=== PATIENT | female | born 1975 | race Two or more races ===

== ENCOUNTER 2021-03-20 09:41 | Emergency (ER) | payer OTHER ==
[~2021-03-20] VITALS: Ht 160 cm; Wt 83.9 kg
[2021-03-20] MEDS ORDERED: CYCLOBENZAPRINE10 MG PO (12:32)
[2021-03-20] MEDS ORDERED: ULTRAM50 MG PO (12:32)
[2021-03-20] MEDS ORDERED: DICLOFENAC POTA50 MG PO (12:32)
== END 2021-03-20 12:47 | disposition home or self-care (01) ==
LOC: ER 09:41
DX: S80.02XA Contusion of left knee, initial encounter (principal); S60.212A Contusion of left wrist, initial encounter; W18.39XA Other fall on same level, initial encounter; Y93.89 Activity, other specified; Y92.89 Other specified places as the place of occurrence of the external cause; Y99.8 Other external cause status

== ENCOUNTER 2021-10-02 05:54 | Day surgery (SDC) | payer OTHER ==
[~2021-10-02 05:54] MED LIST: CYCLOBENZAPRINE10 MG PO; DICLOFENAC POTA50 MG PO; ULTRAM50 MG PO; ZESTORETIC 10-1 EACH PO
[2021-10-02] MEDS ORDERED: PERCOCET 5-3251 EACH PO (12:49)
== END 2021-10-02 14:05 | disposition home or self-care (01) ==
LOC: CIR.AMB 05:54
PROVIDERS: ATTEND Surgery
DX: K64.4 Residual hemorrhoidal skin tags (principal); K64.8 Other hemorrhoids; Z20.822 Contact with and (suspected) exposure to COVID-19